=== PATIENT | male | born 1975 ===

== ENCOUNTER 2024-05-27 10:35 | Outpatient (CLI) | payer OTHER ==
[2024-05-27] MEDS ORDERED: PROTONIX40 MG PO (12:37)
[2024-05-27] MEDS ORDERED: EMBREL PO (12:37)
[2024-05-27] MEDS ORDERED: TREXALL5 MG PO (12:37)
[2024-05-27] MEDS ORDERED: CELEBREX200MG PO (12:38)
== END 2024-05-27 10:45 | disposition home or self-care (01) ==
LOC: RAD 10:35
PROVIDERS: ATTEND Colon & Rectal Surgery
DX: K60.50 Anorectal fistula, unspecified (principal); K64.2 Third degree hemorrhoids

== ENCOUNTER 2024-06-05 10:10 | Day surgery (SDC) | payer OTHER ==
[~2024-06-05 10:10] MED LIST: CELEBREX200MG PO; EMBREL PO; PROTONIX40 MG PO; TREXALL5 MG PO
[2024-06-05] MEDS ORDERED: CEFTRIAXONE SODIUM 2,000 MG VIAL ONE (11:02)
[2024-06-05] MEDS ORDERED: POVIDONE-IODINE 118 ML BOTT TOP ONE (11:02)
[2024-06-05] MEDS ORDERED: BUPIVACAINE HCL/MPF 0.5% 30ML VIAL ONE (11:02)
[2024-06-05] MEDS ORDERED: DIBUCAINE 30 GM TUBE ONE (11:02)
[2024-06-05] MEDS ORDERED: HEMOSTATIC MATRIX 1 KIT KIT TOP ONE (11:02)
[2024-06-05] MEDS ORDERED: LIDOCAINE HCL 1%/EPINEPHRINE 20ML VIAL IJ ONE (11:03)
[2024-06-05] MEDS ORDERED: METRONIDAZOLE/SODIUM CHLORIDE 500 MG/100 ML PIGGYBACK IV ONE (11:03)
[2024-06-05] MEDS ORDERED: BUPIVACAINE LIPOSOME/PF 266 MG/20 ML VIAL IJ ONE (11:16)
[2024-06-05] MEDS ORDERED: MORPHINE SULFATE 4 MG/ML VIAL IV ONE ×3 (13:05→14:05)
== END 2024-06-05 16:10 | disposition home or self-care (01) ==
LOC: CIR.AMB 10:10
PROVIDERS: ATTEND Colon & Rectal Surgery
DX: K64.2 Third degree hemorrhoids (principal); K60.50 Anorectal fistula, unspecified; K62.4 Stenosis of anus and rectum; Z91.013 Allergy to seafood